=== PATIENT | male | born 1995 | race Caucasian/White ===

== ENCOUNTER 2017-05-02 09:10 | Emergency (ER) | payer MEDICAID ==
[2017-05-02] MEDS ORDERED: SODIUM CHLORIDE 0.9% 1,000 ML IV ONE (10:13)
[2017-05-02] MEDS ORDERED: KETOROLAC 60 MG/2 ML VIAL IVP STA (10:13)
[2017-05-02] MEDS ORDERED: PROCHLORPERAZINE 10 MG/2 ML VIAL IVP STA (10:14)
[2017-05-02] MEDS ORDERED: diphenhydrAMINE INJ 50 MG/ML VIAL IVP STA (10:14)
[2017-05-02] MEDS ORDERED: DEXAMETHASONE 10 MG/ML VIAL IVP STA (10:14)
--- NOTE | 2017-05-02 10:17 | ED Physician Documentation ---
PD HPI HEADACHE - Stated complaint Stated Complaint: HEADACHE - Chief complaint Chief Complaint: Neuro - History obtained from History obtained from: Patient - History of Present Illness Timing - onset: Today Timing - details: Still present Worst headache ever?: Worst headache ever? (No) Location: Back Associated symptoms: Nausea. No: Fever, Weakness, Numbness Worsened by: Light, Noise, Moving Similar symptoms before: No diagnosis - Additional information Additional information: The patient is a 21-year-old male who presents with headache which he describes as "a massive migraine." His headache is mostly occipital in location. It was present when he awoke this morning at 5 AM. He reports associated photosensitivity and nausea. He denies vomiting or fever. He reports a history of similar headaches on an almost daily basis. He has had them intermittently since age 4. He has been on various medications in the past, but states none of the medications work. Review of Systems Constitutional: denies: Fever Eyes: reports: Photophobia Ears: denies: Tinnitus/ringing Nose: denies: Congestion Throat: denies: Sore throat Cardiac: denies: Chest pain / pressure Respiratory: denies: Dyspnea, Cough GI: reports: Nausea. denies: Abdominal Pain, Vomiting : denies: Dysuria Skin: denies: Rash Musculoskeletal: denies: Neck pain, Back pain Neurologic: reports: Headache. denies: Focal weakness, Numbness PD PAST MEDICAL HISTORY - Past Medical History Past Medical History: Yes Cardiovascular: None Respiratory: None Neuro: None, Headache/migraine Endocrine/Autoimmune: None GI: None : None HEENT: None Psych: Depression, Anxiety Musculoskeletal: None Derm: None - Past Surgical History Past Surgical History: No - Present Medications Home Medications: Ambulatory Orders Medication Instructions Recorded Confirmed No Known Home Medications [No 08/22/14 06/24/16 Known Home Medications] - Allergies Allergies/Adverse Reactions: Allergies Allergy/AdvReac Type Severity Reaction Status Date / Time No Known Drug Allergies Allergy Verified 06/24/16 13:07 - Social History Does the pt smoke?: Yes Smoking Status: Current every day smoker Does the pt drink ETOH?: Yes Does the pt have substance abuse?: No - Immunizations Immunizations are current?: No Immunizations: TDAP current <10years - POLST Patient has POLST: No PD ED PE NORMAL - Vitals Vital signs reviewed: Yes (Normal) - General General: Alert and oriented X 3, Well developed/nourished - HEENT HEENT: Atraumatic, PERRL, EOMI, Ears normal, Pharynx benign, Other (Fundi with sharp disc margins, without papilledema.) - Neck Neck: Supple, no meningeal sign, No adenopathy, No JVD - Cardiac Cardiac: RRR, No murmur - Respiratory Respiratory: No respiratory distress, Clear bilaterally - Abdomen Abdomen: Soft, Non tender - Back Back: No CVA TTP - Derm Derm: No rash - Extremities Extremities: No edema, No calf tenderness / cord - Neuro Neuro: Alert and oriented X 3, coat maker 2-12 intact, No motor deficit, No sensory deficit, Normal speech Results - Vitals Vitals: Oxygen O2 Source Room air PD MEDICAL DECISION MAKING - ED course Complexity details: reviewed old records, reviewed results, re-evaluated patient , considered differential, d/w patient ED course: The patient's presentation is most consistent with migraine headache. His presentation does not suggest intracranial hemorrhage, meningitis, temporal arteritis, or pseudotumor cerebri. Treatment in the emergency department included administration of normal saline 500 mL IV, Compazine 10 mg IV, Benadryl 25 mg IV, dexamethasone 10 mg IV, and ketorolac 30 mg IV. Following the above treatment the patient felt subjectively much improved. I discussed with him symptomatic treatment, outpatient follow-up, as well as potentially worrisome signs or symptoms that should prompt reevaluation in the emergency department. Departure - Departure Disposition: 01 Home, Self Care Clinical Impression: Headache Qualifiers: Headache type: unspecified Headache chronicity pattern: acute headache Intractability: not intractable Qualified Code(s): R51 - Headache Condition: Stable Instructions: ED Headache Migraine Comments: Drink plenty of fluids. You can use ibuprofen, up to 800 mg if needed for recurrent headache. Follow-up with primary physician. Call to schedule next available appointment. Return to the emergency department if you develop recurrent or increasing headache, persistent vomiting, or otherwise worsening symptoms. Discharge Date/Time: 05/02/17 11:09
[2017-05-02] MEDS ORDERED: KETOROLAC 30 MG/ML VIAL ONE (10:26)
[2017-05-02] MEDS ORDERED: PROCHLORPERAZINE 10 MG/2 ML VIAL ONE (10:26)
[2017-05-02] MEDS ORDERED: diphenhydrAMINE INJ 50 MG/ML VIAL ONE (10:26)
[2017-05-02] MEDS ORDERED: DEXAMETHASONE 10 MG/ML VIAL ONE (10:27)
[2017-05-02] MEDS ORDERED: SODIUM CHLORIDE FLUSH 0.9% 10 ML SYRINGE IVP ONE (10:28)
[2017-05-02 11:09] VITALS: BP 112/74
== END 2017-05-02 11:09 | disposition home or self-care (01) ==
LOC: ED 09:10
DX: R51 Headache (principal); R11.0 Nausea; H53.149 Visual discomfort, unspecified; F17.200 Nicotine dependence, unspecified, uncomplicated
CPT/HCPCS: 96374; 96375; 99283; 99284

== ENCOUNTER 2020-01-03 11:43 | Outpatient (CLI) | payer SELFPAY | END 2020-01-03 11:44 | disposition critical access hospital (66) | LOC: EMS 11:43 | PROVIDERS: ATTEND Surgery | DX: S29.9XXA Unspecified injury of thorax, initial encounter (principal); W20.8XXA Other cause of strike by thrown, projected or falling object, initial encounter; Y93.89 Activity, other specified; Y92.008 Other place in unspecified non-institutional (private) residence as the place of occurrence of the external cause | CPT/HCPCS: A0425; A0429 ==

== ENCOUNTER 2020-01-03 12:01 | Observation (INO) | payer BC, MEDICAID, OTHER ==
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
[2020-01-03 12:29] LABS: BASOPHILS % (AUTO) 0.5 %; EOSINOPHILS # (AUTO) 0.2 10^3/uL (0.0-0.7); EOSINOPHILS % (AUTO) 3.1 %; HGB - HEMOGLOBIN 15.7 g/dL (14.0-18.0); LYMPHOCYTES # (AUTO) 2.7 10^3/uL (1.5-3.5); LYMPHOCYTES % (AUTO) 36.6 %; MEAN CORPUSCULAR HEMOGLOBIN 30.1 pg (27.0-31.0); MEAN CORPUSCULAR HGB CONC 34.4 g/dL (32.0-36.0); MEAN CORPUSCULAR VOLUME 87.4 fL (80.0-94.0); MEAN PLATELET VOLUME 9.2 fL (7.4-11.4); MONOCYTES # (AUTO) 0.7 10^3/uL (0.0-1.0); MONOCYTES % (AUTO) 9.2 %; NEUTROPHILS # (AUTO) 3.8 10^3/uL (1.5-6.6); NEUTROPHILS % (AUTO) 50.2 %; PLT - PLATELET COUNT 245 10^3/uL (130-450); RED BLOOD COUNT 5.22 10^6/uL (4.70-6.10); RED CELL DISTRIBUTION WIDTH 12.7 % (12.0-15.0); WHITE BLOOD COUNT 7.5 x10^3/uL (4.8-10.8)
[2020-01-03 12:38] LABS: ALBUMIN 4.3 g/dL (3.2-5.5); ALBUMIN/GLOBULIN RATIO 1.3 (1.0-2.2); BILIRUBIN,TOTAL 0.7 mg/dL (0.2-1.0); CALCIUM 9.1 mg/dL (8.5-10.3); CREATININE 0.9 mg/dL (0.6-1.2); TOTAL PROTEIN 7.6 g/dL (6.7-8.2)
[2020-01-03] MEDS ORDERED: IOVERSOL 320 100 ML VIAL IVP ONE ×2 (12:38→15:07)
--- NOTE | 2020-01-03 12:49 | XRAY Report ---
Reason: chest pain Procedure Date: 01/03/2020 Accession Number: [id number] / [id number] Procedure: XR - Chest 1 View X-Ray CPT Code: 49894 Final Report FULL RESULT: EXAM: CHEST RADIOGRAPHY EXAM DATE: 01/03/2020 11:56 AM. CLINICAL HISTORY: Chest pain. COMPARISON: None. TECHNIQUE: 1 view. FINDINGS: Lungs/Pleura: No focal opacities evident. No pleural effusion or pneumothorax by supine imaging. Mediastinum: Within exam limitations, the cardiomediastinal contour is normal. Other: No definite acute osseous abnormality. No jacque paravertebral soft tissue widening. IMPRESSION: Single portable supine view of the chest demonstrates no definite acute abnormality. RADIA
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
[2020-01-03] MEDS ORDERED: SODIUM CHLORIDE FLUSH 0.9% 10 ML SYRINGE IVP PRN (14:35)
[2020-01-03] MEDS ORDERED: HYDROcod/ACETAM 10 MG/325 MG TABLET PO PRN (14:35)
[2020-01-03 15:07] LABS: HGB - HEMOGLOBIN 15.2 g/dL (14.0-18.0)
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
--- NOTE | 2020-01-03 15:37 | PHARMACY PROGRESS NOTE ---
- Best Possible Medication History Admit Date and Time: 01/03/20 2065 Processed by: Pharmacy Medication History completed: Yes Patient Interview: Pt unable to participate Secondary Source(s): Insurance records (Patient has NO home medications) As the person ultimately responsible for medication therapy, providers are able to order a medication from an existing home medication list in [facility] via the "Reconcile Routine" prior to Confirmation of that medication by desktop support manager. Such practice is discouraged except when the physician, in their clinical judgment, deems that a medical need exists for a medication without regard to previous use.
[2020-01-03] MEDS ORDERED: LOPERAMIDE 2 MG CAPSULE PO PRN (18:53)
[2020-01-03] MEDS: SODIUM CHLORIDE FLUSH 0.9% 10 ML SYRINGE IVP SCH (19:49)
[2020-01-04] LABS: HGB - HEMOGLOBIN 15.4 g/dL (14.0-18.0)
[2020-01-04] MEDS: SODIUM CHLORIDE FLUSH 0.9% 10 ML SYRINGE IVP SCH ×2 (05:37→10:55)
[2020-01-04 06:25] LABS: CALCIUM 8.9 mg/dL (8.5-10.3); CREATININE 0.9 mg/dL (0.6-1.2)
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
--- NOTE | 2020-01-04 10:46 | Discharge Plan ---
Discharge Plan Problem Reviewed?: Yes Disposition: Home, Self Care Prescriptions: HYDROcodone/ACET 10/325 [[place] 10 mg/325 mg] 1 tab PO Q4HR PRN #15 tablet PRN Reason: Pain Diet: Regular Activity Restrictions: Additional Comments (avoid strenuous and contact sports like activity for 6 weeks) Shower Restrictions: No Driving Restrictions: No Weight Bearing: Full Weight No Smoking: If you smoke, Please STOP! Call for help. Follow-up with: Jason Jack MD [Provider Admit Priv/Credential] -
[2020-01-04 12:15] VITALS: BP 140/77
[2020-01-04 13:34] LABS: HGB - HEMOGLOBIN 16.4 g/dL (14.0-18.0)
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
== END 2020-01-04 14:20 | disposition home or self-care (01) ==
LOC: EDUNIT# → ED 12:01 → MS2 14:35
PROVIDERS: ADMIT Surgery; ATTEND Surgery
DX: S38.1XXA Crushing injury of abdomen, lower back, and pelvis, initial encounter (principal); S20.219A Contusion of unspecified front wall of thorax, initial encounter; S20.229A Contusion of unspecified back wall of thorax, initial encounter; W23.0XXA Caught, crushed, jammed, or pinched between moving objects, initial encounter; F17.210 Nicotine dependence, cigarettes, uncomplicated
CPT/HCPCS: 36415; 71045; 71260; 72040; 72125; 72129; 72132; 72170; 74177; 80048; 80053; 83690; 85014; 85018; 85025; 99284; 99285; A9270; G0378; Q9967

== ENCOUNTER 2021-06-01 08:00 | Outpatient (CLI) | payer OTHER | END 2021-06-01 23:59 | disposition home or self-care (01) | LOC: LAB.N 08:00 | PROVIDERS: ATTEND Family Medicine | DX: U07.1 COVID-19 (principal) ==